=== PATIENT | female | born 1995 | race Caucasian/White ===

== ENCOUNTER → 2018-11-29 06:22 | Outpatient (CLI) | payer OTHER, SELFPAY ==
--- NOTE | 2018-11-29 06:34 | MRI_ITS ---
STUDY: MRI ORBITS WITH AND WITHOUT CONTRAST REASON FOR EXAM: Female, 23 years old. left ethmoid mass, headaches. TECHNIQUE: Standardized fat and water weighted pulse sequences were obtained in all 3 orthogonal planes, pre-and post contrast administration. 13 IV Dotarem was administered for the contrast portion of the examination. COMPARISON: August 14, 2014 FINDINGS: There is 1.2 x 2.1 x 1.7 cm left frontal ethmoidal mass without demonstrated enhancement or destructive bony changes to suggest aggressive behavior. There is widening at the frontoethmoidal recess with obstruction of the left frontal sinus. This mass is stable in comparison with prior CT of the neck in 2013. Normal bilateral globes. Normal bilateral optic nerve sheath complexes and optic nerves. Normal bilateral intraconal and extraconal spaces. Normal bilateral extraocular muscles. Normal optic chiasm and post-chiasmatic tracts. Normal flow voids within the major intracranial circulation suggesting patency by spin echo criteria. MRI/Orbit Face Neck W/WO Contrast IMPRESSION: Stable 1.7 cm left frontal ethmoidal mass. Electronically Signed: Bello James MD at 15:13 EDT Tel , Service support ,
== END ==
PROVIDERS: Family Provider Family Medicine; PCP Family Medicine; Referring Provider Otolaryngology; Visit Provider Otolaryngology
DX: J34.89 Other specified disorders of nose and nasal sinuses (principal)
CPT/HCPCS: 70543; A9575

== ENCOUNTER 2019-04-25 10:50 | Day surgery (SDC) | payer OTHER, SELFPAY ==
[2019-04-25] VITALS (7 sets, daily range): BP systolic 91–131; BP diastolic 63–95; PULSE 61–74; RESP 16; TEMP 36.2–36.9; O2SAT 98–100; BMI 26.9
[2019-04-25] MEDS: Lactated Ringers 1,000 ML 75 ML IV (11:21)
[2019-04-25 11:23] LABS: Internal QC Validated? YES +Cl - CLEAR BKGD; Pregnancy, Urine Negative Negative
--- NOTE | 2019-04-25 12:03 | DCINST_ITS ---
You will use the following diet at home:: No restrictions Discharge Activity: May not drive while taking narcotic pain medications. Call your doctor if your incision/area has: Sudden Increased Bleeding Additional Dressing/Incision Instructions:: irrigate nose with saline spray 6 times daily. Allergies/Adverse Reactions: Allergies No Known Allergies Allergy (Verified 04/25/19 11:01) Medications to take at Discharge Levothyroxine [Synthroid] 125 mcg PO DAILY 04/18/19 Varenicline Tartrate [Chantix] 1 ea PO DAILY 04/18/19 Acetaminophen/Codeine #3 [Tylenol#3] 1 tab PO Q6H PRN PRN 5 Days #15 tab 04/25/19 Amoxicillin 875 mg PO BID #12 tab 04/25/19 The following prescriptions were given: Amoxicillin 875 mg PO BID #12 tab Prescription Printed Acetaminophen/Codeine #3 [Tylenol#3] 1 tab PO Q6H PRN PRN 5 Days #15 tab PRN Reason: Pain Prescription Printed Primary Care Physician: Chapito Rowland MD [Primary Care Provider] - Test Results: Test results from this visit will be discussed in further detail at your follow- up appointment, if applicable. Please Follow Up With: Chapito España MD When: 1 week
--- NOTE | 2019-04-25 12:04 | PCM.OPRPT ---
Problem List (1) Other chronic sinusitis Status: Chronic Report of Operation Date of Procedure: 04/25/19 Pre-Operative Diagnosis: chronic sinusitis Post-Operative Diagnosis: chronic sinusitis Surgery/Procedure Performed:: 1. endoscopic total ethmoidectomy and sphenoidotomy, right and left. 2. endoscopic maxillary antrostomy, right and left. 3. image guided computer navigation Type of Anesthesia:: General Description of Procedure: on the day of the procedure, after appropriate informed consent was obtained, the patient was brought to the operating room and placed in supine position on the operating table. she was placed under general endotracheal anesthesia by the anesthesiologist. the endotracheal tube was secured. the image guidance facial surface markers were set up and confirmed. the bilateral nasal cavities were decongested with oxymetazoline soaked pledgets. the superior attachment of the middle turbinate was injected with lidocaine/epinephrine. the zero degree endoscope was used to visualize the left nasal cavity. a large darius bullosa was medialized. a maxillary antrostomy / uncinectomy was performed with a ramón elevator and a oliverio. contents were evacuated. the ethmoid bulla was entered bluntly with the suction catheter. a curette was used to probe superior to the bulla and an immediate pocket of pus was encountered. the mucocele was dissected and all material was evacuated. a total ethmoidectomy was performed with a curette and a blakesley. a stankewicz maneuver was performed and no laminar defect was found. the anterior/inferior portion of the middle turbinate was removed with turbinate scizzors. the acclarent balloon sinuplasty system was advanced lateral to the superior attachment of the middle turbinate and frontal transillumination was seen. the balloon was advanced and inflated to 12 prakash, then removed. contents were evacuated. the area was irrigated with saline and hemostasis was achieved with suction cautery. darci powder was sprayed on raw surfaces. the zero degree endoscope was used to visualize the right nasal cavity. a large darius bullosa was medialized. there was a significant right septal deviation. a maxillary antrostomy / uncinectomy was performed with a ramón elevator and a oliverio. contents were evacuated. the ethmoid bulla was entered bluntly with the suction catheter. a total ethmoidectomy was performed with a curette and a blakesley. a stankewicz maneuver was performed and no laminar defect was found. the anterior/inferior portion of the middle turbinate was removed with turbinate scizzors. the acclarent balloon sinuplasty system was advanced lateral to the superior attachment of the middle turbinate and frontal transillumination was seen. the balloon was advanced and inflated to 12 prakash, then removed. contents were evacuated. the area was irrigated with saline and hemostasis was achieved with suction cautery. darci powder was sprayed on raw surfaces. the patient was awoken from anesthesia and transferred to the PACU in stable condition.
[2019-04-25] MEDS: Oxymetazoline 0.05% 1 SPRAY SPRAY.BTL 15 SPRAY (12:30)
--- NOTE | 2019-04-25 12:55 | ETH_PTH ---
PATIENT: SHASHI SANTORO LOC: [facility] – [place] U#:[id number] AGE/SX: 23/F ROOM: RE04/25/[address]: Dr. Surendra España MD : 1995 BED: DIS: 04/25/2019 SPEC #: [id number] RECD: 04/25/19 13:59 STATUS: MATT GORDO #: [id number] DIDIER: 04/25/19 12:[address]: Surendra España DEPT: SURGICAL PATHOLOGY RECD BY: Sarah De Oliveira ENTERED: 04/25/19 14:16 SP TYPE: ETH TISS OTHR DR: Dr. Chapito Rowland MD Tissues: A - Ethmoid sinus, NOS B - Ethmoid sinus, NOS Procedures: Decalcification bone/plaque Surgery Specimen Level III HEADER OPERATION: Functional endoscopic sinus surgery, navigation PRE-OP DIAGNOSIS: Chronic sinusitis TISSUE SUBMITTED: A. Right sinus contents, B. Left sinus contents MICROSCOPIC DIAGNOSIS A. Right sinus contents, excision: Consistent with chronic sinusitis. Minute fragments of bone with no pathologic change. B. Left sinus contents, excision: Consistent with chronic sinusitis. Minute fragments of bone with no pathologic change. AM:alejandro 04/28/19 MICROSCOPIC DESCRIPTION Slides are reviewed. GROSS DESCRIPTION A - Received in fixative is one container labeled with the patient's name and designated right sinus contents. The specimen consists of multiple foamy fragments of red-sheikh soft tissue that in aggregate measure 4 x 4 x 0.2 cm. The specimen is totally submitted in two cassettes. B - Received in fixative is one container labeled with the patient's name and designated left sinus contents. The specimen consists of multiple irregular and gritty fragments of light red-sheikh soft tissue that in aggregate measure 6 x 6 x 0.7 cm. The specimen is submitted in its entirety in two cassettes after decalcification. / AM:alejandro 04/25/19 TC:3 CPT: 91621 x2, 95125
== END 2019-04-25 15:16 | disposition home or self-care (01) ==
LOC: SDC 10:53 → AC 10:54
PROVIDERS: Anesthesiology; Family Provider Family Medicine; PCP Family Medicine; Referring Provider Otolaryngology; Visit Provider Otolaryngology
PROC: (CPT 31240; principal; 2019-04-25 12:25)
DX: J32.8 Other chronic sinusitis (principal); Z79.899 Other long term (current) drug therapy; F17.210 Nicotine dependence, cigarettes, uncomplicated; E07.9 Disorder of thyroid, unspecified
CPT/HCPCS: 00160; 31240; 31259; 31267; 81025; 88304; 88305; 88311; J7120; J2405